=== PATIENT | male | born 1990 | race Caucasian/White ===

== ENCOUNTER 2019-01-23 18:09 | Inpatient (IN) | payer SELFPAY ==
[~2019-01-23 18:09] MED LIST: ISOVUE-370 76%-LOCM 1 ML ONE
[2019-01-23] MEDS ORDERED: Ibuprofen 200 MG TAB ONE (18:28)
[2019-01-23 18:46] LABS: Hemoglobin 8.3 g/dL (14.0-18.0); Mean Corpuscular HGB CONC 35.5 g/dL (32.0-36.0); Mean Corpuscular Hemoglobin 34.2 pg (27.0-31.0); Mean Corpuscular Volume 96.4 fL (78.0-98.0); RBC Distribution Width 15.2 % (11.5-14.5); Red Blood Cell (RBC) Count 2.42 mill/uL (4.70-6.10); White Blood Cell (WBC) Count 8.9 thou/uL (4.8-10.8)
--- NOTE | 2019-01-23 18:57 | RAD ---
PORTABLE CHEST ONE VIEW: Date: 01-23-19 Time: 6:34 p.m. History: Cough, fever. FINDINGS: The heart size is normal. No lobar consolidation, pneumothoraces, marcelino pulmonary edema or pleural ef fusions are seen. IMPRESSION: No acute process. POS: [facility]
[2019-01-23 19:02] LABS: ALT (SGPT) 10 U/L (8-55); AST (SGOT) 16 U/L (5-34); Albumin 3.4 g/dL (3.5-5.0); Alkaline Phosphatase 50 U/L (40-150); Anion Gap 15 mmol/L (10-20); BUN (Urea Nitrogen) 15 mg/dL (8.9-20.6); Bilirubin, Total 0.8 mg/dL (0.2-1.2); Calc. Creatinine Clearance 0 mL/min (70-130); Calcium 8.9 mg/dL (7.8-10.44); Carbon Dioxide 19 mmol/L (22-29); Chloride 102 mmol/L (98-107); Estimated GFR-MDRD 79; Globulin 5.4 g/dL (2.4-3.5); Glucose 110 mg/dL (70-105); Potassium 3.4 mmol/L (3.5-5.1); Protein, Total 8.8 g/dL (6.0-8.3); Sodium 133 mmol/L (136-145)
[2019-01-23 19:24] LABS: Band 1 % (5-11); Lymphocytes 27 % (21-51); MDiff Complete? YES; Mean Platelet Volume 8.3 fL (7.4-10.4); Monocytes 45 % (0-10); Neutrophil 3 % (42-75); Nucleated RBC 1 % (0); Platelet Count 117 thou/uL (130-400); Platelet Morphology Comment Appears Decreased; Polychromasia SLIGHT = 2-3 cells (100X) (0-2/hpf); Reactive Lymphocytes 8 % (0-10); Reflex for Review?? YES
[2019-01-23] MEDS ORDERED: Azithromycin 500 MG VIAL ONE (19:43)
[2019-01-23] MEDS ORDERED: Cefepime 2 GM in Sodium Chloride 0.9% 100 ML IVPB SCH (20:00)
[2019-01-23] MEDS ORDERED: cefTRIAXone\\ROCEPHIN 1 GM VIAL ONE (20:04)
--- NOTE | 2019-01-23 20:18 | CT ---
CT PULMONARY ANGIOGRAM WITH IV CONTRAST AND 3D POST PROCESSING: History: Shortness of breath. FINDINGS: No filling defects are seen in the main pulmonary arteries to suggest central pulmonary embolism. Per ipheral branches cannot be satisfactorily evaluated due to inadequate opacification. The thoracic aor ta is well opacified without aneurysm or dissection. No pneumothoraces or pericardial effusions are s een. Patchy small opacities are seen in the lung reno bilaterally. IMPRESSION: 1. No CT evidence of central pulmonary embolism or thoracic aortic aneurysm/dissection. 2. Findings are suspicious for atypical bilateral pneumonia. POS: [facility]
[2019-01-23] MEDS ORDERED: Oseltamivir 75 MG CAP PO SCH (21:30)
[2019-01-23 23:22] VITALS: BMI 29.4
[2019-01-23] MEDS ORDERED: Ondansetron PF 4 MG/2 ML Vial IVP PRN (23:30)
[2019-01-23] MEDS ORDERED: Ondansetron ODT 4 MG TAB PO PRN (23:30)
[2019-01-24] MEDS: Sodium Chloride 0.9% 1,000 ML IV SCH ×2 (02:32→16:32)
[2019-01-24] MEDS: Acetaminophen 325 MG TAB PO PRN ×4 (05:13→22:04)
[2019-01-24 06:26] LABS: Anion Gap 11 mmol/L (10-20); BUN (Urea Nitrogen) 11 mg/dL (8.9-20.6); Calc. Creatinine Clearance 189 mL/min (70-130); Calcium 8.1 mg/dL (7.8-10.44); Carbon Dioxide 19 mmol/L (22-29); Chloride 108 mmol/L (98-107); Estimated GFR-MDRD Greater than 90; Glucose 107 mg/dL (70-105); Potassium 3.4 mmol/L (3.5-5.1); Sodium 135 mmol/L (136-145)
[2019-01-24 06:55] LABS: Anisocytosis SLIGHT = 6-15 cells (100X) (0-5/hpf); Band 1 % (5-11); Differential Comment Blast-Like Cell(s); Eosinophils 1 % (0-10); Hemoglobin 7.3 g/dL (14.0-18.0); Lymphocytes 40 % (21-51); MDiff Complete? YES; Mean Corpuscular HGB CONC 35.6 g/dL (32.0-36.0); Mean Corpuscular Hemoglobin 34.1 pg (27.0-31.0); Mean Corpuscular Volume 95.7 fL (78.0-98.0); Mean Platelet Volume 8.7 fL (7.4-10.4); Monocytes 49 % (0-10); Neutrophil 2 % (42-75); Platelet Count 98 thou/uL (130-400); Platelet Morphology Comment Appears Decreased; RBC Distribution Width 15.5 % (11.5-14.5); Red Blood Cell (RBC) Count 2.15 mill/uL (4.70-6.10); White Blood Cell (WBC) Count 8.5 thou/uL (4.8-10.8)
[2019-01-24] MEDS: Cefepime 1 GM in Sodium Chloride 0.9% 100 ML IVPB SCH ×2 (09:24→22:05)
[2019-01-24] MEDS: Oseltamivir 75 MG CAP PO SCH ×2 (09:28→21:39)
[2019-01-24] MEDS: guaiFENesin 200 MG TAB PO PRN ×2 (09:37→17:12)
[2019-01-24] MEDS: Benzonatate 100 MG CAP PO PRN ×2 (13:02→21:38)
--- NOTE | 2019-01-24 13:48 | PDOC.HOSPP ---
- Subjective Encounter Date: 01/24/19 Encounter Time: 13:30 Subjective: f/u for Influenza B and suspected atypical PNA on Tamiflu, Cefepime. States no prior hx of cancer or prior chemotx. No exposure hx or recent travel. - Objective Vital Signs & Weight: Vital Signs (12 hours) Temp Pulse Resp BP Pulse Ox 01/24/19 11:57 98.6 F 95 20 151/82 H 96 01/24/19 08:00 95 01/24/19 07:56 98.8 F 81 20 139/78 95 01/24/19 05:04 102.5 F H 116 H 20 156/81 H 93 L Weight Weight 235 lb 4.8 oz Result Diagrams: 01/24/19 05:34 01/24/19 05:34 Additional Labs: Microbiology 01/23/19 19:53 Throat - Pending Group A Streptococcus Screen ([facility]) - Final 01/23/19 19:53 Nasal swab Influenza Types A,B Direct EIA - Final 01/23/19 18:51 Venous blood - Left Arm Blood Culture - Preliminary Specimen has been received and culture in progress. No Growth to date. 01/23/19 18:32 Venous blood - Left Arm Blood Culture - Preliminary Specimen has been received and culture in progress. No Growth to date. Laboratory Tests 01/23/19 01/23/19 01/24/19 18:32 18:32 05:34 Hgb 8.3 L Plt Count 117 L Neutrophils % (Manual) 3 L 2 L Monocytes % (Manual) 45 H 49 H Differential Comment Blast-Like Cell(s) Other Cell Type 16 7 Potassium 3.4 L Radiology Reviewed by me: Yes (CTA - no PE, infiltrate bilat) Hospitalist ROS - Medication Medications: Active Medications Generic Name Dose Route Start Last Admin Trade Name Freq PRN Reason Stop Dose Admin Acetaminophen 650 mg 01/23/19 22:56 01/24/19 13:04 Tylenol PO 01/27/19 09:40 650 mg Q4H PRN Administration Headache/Fever or Pain Benzonatate 100 mg 01/24/19 04:44 01/24/19 13:02 Tessalon PO 100 mg TIDPRN PRN Administration Cough Guaifenesin 200 mg 01/24/19 04:44 01/24/19 09:37 Organ-I Nr PO 200 mg Q4H PRN Administration Congestion Cefepime HCl 1 gm/ Sodium 100 mls @ 200 mls/hr 01/24/19 09:00 01/24/19 09:24 Chloride IVPB 100 mls Q12HR MARY Administration Sodium Chloride 1,000 mls @ 75 mls/hr 01/23/19 23:30 01/24/19 02:32 Normal Saline 0.9% IV 1,000 mls .[id number] MARY Administration Oseltamivir Phosphate 75 mg 01/24/19 09:00 01/24/19 09:28 Tamiflu PO 01/28/19 21:01 75 mg BID MARY Administration - Exam General Appearance: NAD, awake alert General - other findings: Pale appearing Eye: PERRL, anicteric sclera ENT: normocephalic atraumatic, no oropharyngeal lesions Neck: supple, symmetric, no JVD, no thyromegaly, no lymphadenopathy Heart: RRR, no murmur, no gallops, no rubs, normal peripheral pulses Heart - other findings: S1, S2 Respiratory - other findings: diminished in bases, few rhonchi Gastrointestinal: soft, non-tender, non-distended, normal bowel sounds, no palpable masses Extremities: no cyanosis, no edema Skin: normal turgor Skin - other findings: Pale Neurological: CN's grossly intact, no focal deficits, no new deficit Musculoskeletal: normal tone, normal strength Psychiatric: normal affect, normal behavior, A&O x 3 Hosp A/P (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
[2019-01-24] MEDS ORDERED: Potassium Chloride 20 MEQ TAB PO SCH (14:15)
[2019-01-24] MEDS: Potassium Chloride 20 MEQ TAB PO SCH (17:11)
--- NOTE | 2019-01-24 20:00 | HP ---
PRIMARY CARE PHYSICIAN: The patient has no primary care doctor. TIME OF EVALUATION: 10:25 p.m. CHIEF COMPLAINT: Sore throat. HISTORY OF PRESENT ILLNESS: This is a 28-year-old male patient, past medical history with no significant problems, came to the hospital after history of having upper respiratory symptoms and nasal congestion for the past 2 weeks with no clear triggers, no alleviating factors. He then presented with also associated subjective fever, and the patient also had generalized weakness. The symptoms started insidiously and has been gradually getting worse. REVIEW OF SYSTEMS: Positive for arthralgia, sore throat, rash. All other systems were negative except for the findings reported in the HPI. PAST MEDICAL HISTORY: Negative. PAST SURGICAL HISTORY: Right wrist fracture. PSYCHIATRIC HISTORY: No previous psych history. SOCIAL HISTORY: No alcohol. No drugs. No smoking history. FAMILY HISTORY: Reviewed and noncontributory for current presentation. KNOWN ALLERGIES: No known drug allergies. REPORTED MEDICATIONS: None. PHYSICAL EXAMINATION: VITAL SIGNS: On presentation; blood pressure 115/92, with heart rate 153, respiratory rate was 20, temperature 99.8, oxygen saturation was 99 on room air. GENERAL APPEARANCE: The patient is alert, oriented, in no acute distress. HEENT: Eyes; normal conjunctivae. Moist oral mucosa . RESPIRATORY: Bilateral air entry. No rales. No wheezes. Symmetric expansion. CARDIOVASCULAR: Normal rate, regular rhythm. No murmurs. No gallops. No edema. ABDOMEN: Soft. Normal bowel sounds. MUSCULOSKELETAL: Baseline range of motion and strength. SKIN: Warm and intact, no pallor, no rash, no redness, except for rash that the patient has in bilateral arms. EXTREMITIES: Bilateral range of motion is preserved. NEUROLOGIC: No evidence of any new focal weakness. Cranial nerves seem to be intact. PSYCH: The patient is in good mood. No anxiety. Optimal judgment. DIAGNOSTIC STUDIES: EKG was reviewed. The patient has sinus tachycardia at a rate of 138, QT corrected 421, QRS 80, NC 188. Chest and thorax CTA was done. No evidence of central pulmonary embolism or thoracic aorta aneurysm or dissection, possible atypical bacterial bilateral pneumonia. Labs were reviewed. The patient has white count 9.9, hemoglobin 8.3, hematocrit 23.3, MCV 96.4. Platelet count 117, the repeat one came down to 98, and repeat hemoglobin came down to 7.3. Monocytes were 45 on presentation. Bands were equals to 1. D-dimer was 1.88. Sodium 133 , potassium 3.4, chloride 102, carbon dioxide 19, anion gap 18, creatinine 1.10, GFR 79, glucose 110. Lactic acid 1.9. LFTs were negative. Alkaline phosphatase was normal. ASSESSMENT AND PLAN: The patient will be placed in the hospital with following medical problems. 1. Possible bilateral pneumonia. The patient is started on antibiotics. We will continue for now. This is based on the fever and the findings in the CT angio of the chest showing possible bilateral atypical pneumonia. Follow cultures and adjust as needed. 2. The patient has pancytopenia of unclear etiology. Platelet count initially went to 117 with hemoglobin 8.3. The patient has no previous history. As important finding, the patient has monocytosis of 45. These findings might be pointing to malignancy. It could be beneficial to consult Oncology for this young patient. There is no other indication of the patient traveling outside, no risk for HIV as discussed with the patient. 3. Hyponatremia, sodium 133. This is mild, we will monitor. We will treat accordingly. 4. Hypokalemia, potassium 3.4. Replace electrolytes as needed. 5. Deep venous thrombosis prophylaxis. Job ID: [id number] [facility]
[2019-01-24] MEDS ORDERED: diphenhydrAMINE 25 MG CAP PO SCH (22:45)
[2019-01-24] MEDS ORDERED: methylPREDNISolone Sod Succ/PF 125 MG/2 ML VIAL IVP SCH (23:00)
[2019-01-25] MEDS: guaiFENesin 200 MG TAB PO PRN (02:12)
[2019-01-25] MEDS: Sodium Chloride 0.9% 1,000 ML IV SCH (02:12)
[2019-01-25] MEDS: Acetaminophen 325 MG TAB PO PRN (04:46)
[2019-01-25] MEDS: Benzonatate 100 MG CAP PO PRN (04:46)
[2019-01-25 06:18] LABS: Hemoglobin 7.8 g/dL (14.0-18.0); Mean Corpuscular HGB CONC 34.1 g/dL (32.0-36.0); Mean Corpuscular Hemoglobin 33.2 pg (27.0-31.0); Mean Corpuscular Volume 97.4 fL (78.0-98.0); Mean Platelet Volume 8.8 fL (7.4-10.4); Platelet Count 109 thou/uL (130-400); RBC Distribution Width 15.3 % (11.5-14.5); Red Blood Cell (RBC) Count 2.34 mill/uL (4.70-6.10); White Blood Cell (WBC) Count 5.7 thou/uL (4.8-10.8)
[2019-01-25 06:30] LABS: Anion Gap 16 mmol/L (10-20); BUN (Urea Nitrogen) 9 mg/dL (8.9-20.6); Band 2 % (5-11); Blast 6 % (0-0); Calc. Creatinine Clearance 201 mL/min (70-130); Calcium 8.6 mg/dL (7.8-10.44); Carbon Dioxide 15 mmol/L (22-29); Chloride 106 mmol/L (98-107); Estimated GFR-MDRD Greater than 90; Glucose 121 mg/dL (70-105); Lymphocytes 47 % (21-51); MDiff Complete? YES; Monocytes 35 % (0-10); Neutrophil 10 % (42-75); Platelet Morphology Comment Appears Decreased; Potassium 4.2 mmol/L (3.5-5.1); Sodium 133 mmol/L (136-145)
[2019-01-25] MEDS: Potassium Chloride 20 MEQ TAB PO SCH (08:10)
[2019-01-25] MEDS: Oseltamivir 75 MG CAP PO SCH (08:11)
[2019-01-25] MEDS: Cefepime 1 GM in Sodium Chloride 0.9% 100 ML IVPB SCH (08:11)
[2019-01-25 08:31] VITALS: BP 136/77; TEMP 98
--- NOTE | 2019-01-26 04:20 | DIS ---
DATE OF ADMISSION: 01/23/2019 DATE OF DISCHARGE: 01/25/2019 DISCHARGE DIAGNOSES: 1. Acute promyelocytic leukemia, suspected. 2. Influenza B. 3. Bacterial pneumonia, suspected. 4. Normocytic anemia. 5. Thrombocytopenia secondary to #1. 6. Hypokalemia, resolved. CONSULTATIONS: Hematology Service. PERTINENT LABORATORY AND X-RAY FINDINGS: Sodium ranged between 133 to 135, potassium ranged between 3.4 to 4.2, carbon dioxide level ranged between 15 to 19. Lactic acid level 1.9. LFTs within normal limits. Serum total protein 8.8. CBC showed a white blood cell count ranging between 5.7 to 8.9, hemoglobin ranged between 7.3 to 8.3, platelet count ranged between 98 to 117, monocyte percentage ranged between 35% to 49%, blast cells noted ranging from 6% to approximately 16%. Blood cultures x2 dated 01/23/2019, showed no growth to date. Influenza A and B antigen positive for influenza B on 01/23/2019. Group A Streptococcus screen negative on 01/23/2019. Group A Streptococcus culture negative on 01/23/2019. Blood type A positive. Antibody screen negative. Portable chest x-ray dated 01/23/2019, showed no acute process. CT angiogram of the chest dated 01/23/2019, showed no evidence for pulmonary embolus. Patchy opacities in bilateral lung reno. Questionable atypical pneumonia. HOSPITAL COURSE: The patient was initially admitted after presenting with general malaise, sore throat, rhinorrhea, and subjective fever. The patient underwent general evaluation with screening influenza positive for influenza B. The patient was placed on respiratory and droplet precautions and initiated on Tamiflu 75 mg b.i.d. The patient also received CT angiogram of the chest in the emergency room due to metabolic derangement including thrombocytopenia and concern for pulmonary embolus. Patchy infiltrates were noted in bilateral lung reno concerning for atypical pneumonia. The patient was initiated on cefepime 2 g IV q.12 hours with additional attention directed to the patient's CBC. Pathological and smear review showed evidence of up to 16% blast cells concerning for an acute leukemia. The patient was evaluated by the Hematology Service with recommendations to transfer urgently to [facility] for further evaluation including bone marrow evaluation for confirmation. The patient received IV fluids in addition to potassium supplementation and overall remained clinically stable during the hospital course. I have examined the patient at the time of discharge with instructions on transfer and follow up at [facility] on 01/25/2019. The patient overall is stable with current vital signs and ready to transfer with direct admission to [facility] on 01/25/2019. CURRENT MEDICATIONS: 1. Cefepime 1 g IV q.12 hours. 2. Tamiflu 75 mg p.o. b.i.d. FOLLOWUP: The patient to follow up with [facility] in the Leukemia Unit with Dr. Herrera. ACTIVITY: Ad-christie. SPECIAL INSTRUCTIONS: Contact and respiratory isolation. DIET: Regular. CODE STATUS: Full. DISPOSITION: Transfer to [facility] in [place], [place] on 01/25/2019. TIME SPENT: Total time preparing and coordinating discharge is 33 minutes. Job ID: [id number]
--- NOTE | 2019-01-26 23:51 | PQF ---
[employer] Research Advisor [employer] Winform ViewerSTACY BARBA EDE LACKEY DO [id number] CLINICAL DOCUMENTATION CLARIFICATION FORM: POST DISCHARGE Addendum to original discharge summary date: ____ Late entry note date: __ DATE: 01/27/2019 ATTN:EDE LACKEY DO Please exercise your independent, professional judgment in responding to the clarification form. Clinical indicators are provided on the bottom of this form for your review Please check appropriate box(s) to clarify if the following diagnosis has been ruled in or ruled out: Sepsis [ ] Ruled in diagnosis [ ] Continue to treat [ ] Resolved [ x ] Ruled out diagnosis [ ] Cannot rule out diagnosis [ ] Other diagnosis [ ] Unable to determine For continuity of documentation, please document condition throughout progress notes and discharge summary. Thank You. CLINICAL INDICATORS - SIGNS / SYMPTOMS / LABS -Sepsis, ED record, 01/23, Hayley Johnson MD -Influenza B, pneumonia- ED record, 01/23, Hayley Johnson MD -HR:153, Pulse:20, Temp: 99.8-H&P, 01/24, Trung Burroughs MD -WBC: 5.7-Laboratory, 01/25 -Bilateral lung reno concerning for atypical pneumonia-DS, 01/25, EDE LACKEY DO RISK FACTORS -Acute promyelocytic leukemia-DS, 01/25, EDE LACKEY DO -Thrombocytopenia-DS, 01/25, EDE LACKEY DO TREATMENTS - Cefepime.IV-DS, 01/25, EDE LACKEY DO -Tamiflu.P.O-DS, 01/25, EDE LACKEY DO (This form is maintained as a part of the permanent medical record) 2014 [employer]. All Rights Reserved [employer]visor [employer] Reports Winform Viewerkiymariah Rueda [ not provided] [not provided] MTDD
--- NOTE | 2019-01-28 23:04 | EKG ---
Test Reason : Blood Pressure : / mmHG Vent. Rate : 138 BPM Atrial Rate : 138 BPM P-R Int : 188 ms QRS Dur : 080 ms QT Int : 278 ms P-R-T Axes : 033 027 048 degrees QTc Int : 421 ms Sinus tachycardia Possible Left atrial enlargement Nonspecific T wave abnormality Abnormal ECG Confirmed by KEZIA JEAN M.D. ([id number]), desk editor SARA RECIO ([id number]) on 01/28/2019 11:04:01 PM Referred By: Confirmed By:KEZIA JEAN M.D.
== END 2019-01-25 09:14 | disposition short-term general hospital (02) | DRG 194 ==
LOC: ERS 18:09 → T4-B 21:41
PROVIDERS: ADMIT Hospitalist; ATTEND Hospitalist
DX: J10.08 Influenza due to other identified influenza virus with other specified pneumonia (principal); C92.40 Acute promyelocytic leukemia, not having achieved remission; D61.818 Other pancytopenia; E87.1 Hypo-osmolality and hyponatremia; E87.6 Hypokalemia
CPT/HCPCS: 36415; 71045; 71275; 80048; 80053; 83605; 85007; 85025; 85027; 85060; 85379; 86850; 86900; 86901; 87040; 87081; 87430; 87804; 93005; 96361; 96365; 96375; J0456; J0692; J0696; J2930; J3490; Q0163; Q9966